=== PATIENT | male | born 1980 | race Two or more races ===

== ENCOUNTER 2018-10-27 23:57 | Inpatient (IN) | payer SELFPAY ==
[~2018-10-27] VITALS: Ht 177.8 cm; Wt 69.0 kg
[2018-10-28] MEDS ORDERED: ZIPRASIDONE IM 20 MG VIAL. IM ONE ×2 (00:30→02:00)
[2018-10-28 00:49] LABS: BASO % 1 % (0-3); EOS # 0.1 x10^3/uL (0.0-0.7); EOS % 1 % (0-3); HEMATOCRIT 46.3 % (39.0-53.0); HEMOGLOBIN 15.5 g/dL (13.0-17.5); LYMPH # 2.2 x10^3/uL (1.0-4.8); LYMPH % 32 % (24-48); MEAN CORPUSCULAR HEMOGLOBIN 32 pg (25-35); MEAN CORPUSCULAR HGB CONC 34 g/dL (31-37); MEAN CORPUSCULAR VOLUME 94 fL (79-100); MONO # 0.6 x10^3/uL (0.0-1.1); MONO % 9 % (0-9); NEUT % 57 % (31-73); PLATELET COUNT 325 x10^3/uL (140-400); RED BLOOD COUNT 4.92 x10^6/uL (4.30-5.70); RED CELL DISTRIBUTION WIDTH 14.1 % (11.5-14.5)
[2018-10-28] MEDS ORDERED: NALOXONE 2 MG/2 ML DISP.SYRIN. IV ONE (00:58)
[2018-10-28] MEDS ORDERED: NALOXONE 0.4 MG/ML VIAL. IV ONE (01:00)
[2018-10-28 01:04] LABS: ALBUMIN/GLOBULIN RATIO 0.9 (1.0-1.7); CALCIUM 9.3 mg/dL (8.5-10.1); CREATININE 1.3 mg/dL (0.7-1.3); GFR 62.5; POTASSIUM 3.8 mmol/L (3.5-5.1); TOTAL BILIRUBIN 0.4 mg/dL (0.2-1.0); TOTAL PROTEIN 8.6 g/dL (6.4-8.2)
[2018-10-28 01:05] LABS: ACETAMIN < 2.0 mcg/mL (10-30); ETHANOL < 10 mg/dL (0-10); SALIC 3.6 mg/dL (2.8-20.0)
[2018-10-28 01:31] LABS: BARBITURATES NEG (NEG); BENZODIAZEPINES POS (NEG); CANNABINOIDS POS (NEG); COCAINE NEG (NEG); METHADONE NEG (NEG); OPIATES NEG (NEG); PHENCYCLIDINE NEG (NEG)
[2018-10-28 01:37] LABS: AMPHETAMINE/METHAMPHETAMINE POS (NEG)
[2018-10-28 01:40] LABS: BACTERIA,URINE 0 /HPF (0-FEW); BILIRUBIN,URINE NEG (NEG); CLARITY,URINE CLEAR; COLOR,URINE YELLOW; GLUCOSE,URINE NEG (NEG); NITRITE,URINE NEG (NEG); RBC,URINE 0 /HPF (0-2); SQUAMOUS EPITHELIAL CELL,UR FEW /LPF; UROBILINOGEN,URINE 1 mg/dL (0.2 mg/dL)
--- NOTE | 2018-10-28 01:59 | PHYS DOC ---
Past History Past Medical History: Hepatitis, Other Past Surgical History: Other Alcohol Use: Heavy Drug Use: Marijuana, Other Adult General Chief Complaint Chief Complaint: ALTERED MENTAL STATUS HPI HPI Patient is a 38-year-old male who presents via EMS with report of mental status change. Patient reportedly had been picked up by police officers this evening due to having arrest warrant in place. Patient had been taken into [facility] and then had told police officers that he had eaten an 8 ball of some kind of a drug but he is not sure what it was. Patient had admitted to them that he had done that to keep himself from getting into trouble. EMS reports that patient was very confused and combative while in route. Additional history is limited due to patient's mental status. Review of Systems Review of Systems Constitutional: No reported fever or chills [] Respiratory: No reported shortness of breath [] Cardiovascular: No additional information not addressed in HPI [] GI: No reported vomiting or diarrhea [] Unable to fully assess review of systems due to patient's mental status. Current Medications Current Medications Current Medications Medications (Trade) Dose Ordered Sig/Edgard Start Time Stop Time Status Last Admin Dose Admin Naloxone HCl (Narcan) 1 mg 1X ONCE 10/28/18 01:00 10/28/18 01:01 DC 10/28/18 01:04 1 MG Ziprasidone (Geodon Im) 20 mg 1X ONCE 10/28/18 00:30 10/28/18 01:01 DC 10/28/18 00:30 20 MG Allergies Allergies Allergies Coded Allergies Type Severity Reaction Last Updated Verified Unable to Assess 10/28/18 No Physical Exam Physical Exam Constitutional: Patient very confused, combative upon arrival. [] HENT: Normocephalic, atraumatic, bilateral external ears normal, oropharynx moist, no oral exudates, nose normal. [] Eyes: Pupils pinpoint, conjunctiva normal, no discharge. [] Neck: Normal range of motion, no tenderness, supple, no stridor. [] Cardiovascular: Mildly tachycardic rate with regular rhythm[] Lungs & Thorax: Bilateral breath sounds clear to auscultation [] Abdomen: Bowel sounds normal, soft, no tenderness. [] Skin: Warm, dry, no erythema, no rash. [] Extremities: No tenderness, no cyanosis, no clubbing, ROM intact, no edema. [] Neurologic: Confused, moves all 4 extremities, no focal deficits noted. [] Current Patient Data Vital Signs Vital Signs Date Time Temp Pulse Resp B/P (MAP) Pulse Ox O2 Delivery O2 Flow Rate FiO2 10/28/18 01:01 74 20 89/57 (68) 99 Room Air 10/28/18 00:35 98.0 Lab Results Laboratory Tests Test 10/28/18 00:30 10/28/18 01:15 White Blood Count 7.0 x10^3/uL (4.0-11.0) Red Blood Count 4.92 x10^6/uL (4.30-5.70) Hemoglobin 15.5 g/dL (13.0-17.5) Hematocrit 46.3 % (39.0-53.0) Mean Corpuscular Volume 94 fL (79-100) Mean Corpuscular Hemoglobin 32 pg (25-35) Mean Corpuscular Hemoglobin Concent 34 g/dL (31-37) Red Cell Distribution Width 14.1 % (11.5-14.5) Platelet Count 325 x10^3/uL (140-400) Neutrophils (%) (Auto) 57 % (31-73) Lymphocytes (%) (Auto) 32 % (24-48) Monocytes (%) (Auto) 9 % (0-9) Eosinophils (%) (Auto) 1 % (0-3) Basophils (%) (Auto) 1 % (0-3) Neutrophils # (Auto) 4.0 x10^3uL (1.8-7.7) Lymphocytes # (Auto) 2.2 x10^3/uL (1.0-4.8) Monocytes # (Auto) 0.6 x10^3/uL (0.0-1.1) Eosinophils # (Auto) 0.1 x10^3/uL (0.0-0.7) Basophils # (Auto) 0.0 x10^3/uL (0.0-0.2) Sodium Level 137 mmol/L (136-145) Potassium Level 3.8 mmol/L (3.5-5.1) Chloride Level 101 mmol/L (98-107) Carbon Dioxide Level 19 mmol/L (21-32) L Anion Gap 17 (6-14) H Blood Urea Nitrogen 8 mg/dL (8-26) Creatinine 1.3 mg/dL (0.7-1.3) Estimated GFR (Cockcroft-Gault) 62.5 BUN/Creatinine Ratio 6 (6-20) Glucose Level 92 mg/dL (70-99) Calcium Level 9.3 mg/dL (8.5-10.1) Magnesium Level 2.0 mg/dL (1.8-2.4) Total Bilirubin 0.4 mg/dL (0.2-1.0) Aspartate Amino Transferase (AST) 15 U/L (15-37) Alanine Aminotransferase (ALT) 20 U/L (16-63) Alkaline Phosphatase 116 U/L (46-116) Ammonia 28 mcmol/L (11-34) Total Protein 8.6 g/dL (6.4-8.2) H Albumin 4.0 g/dL (3.4-5.0) Albumin/Globulin Ratio 0.9 (1.0-1.7) L Salicylates Level 3.6 mg/dL (2.8-20.0) Salicylate Last Dose Date Unknown Salicylate Last Dose Time Unknown Acetaminophen Level < 2.0 mcg/mL (10-30) L Acetaminophen Last Dose Date Unknown Acetaminophen Last Dose Time Unknown Ethyl Alcohol Level < 10 mg/dL (0-10) Urine Collection Type U cath Urine Color Yellow Urine Clarity Clear Urine pH 7.0 Urine Specific [place] 1.020 Urine Protein Neg (NEG-TRACE) Urine Glucose (UA) Neg mg/dL (NEG) Urine Ketones (Stick) Neg mg/dL (NEG) Urine Blood Neg (NEG) Urine Nitrite Neg (NEG) Urine Bilirubin Neg (NEG) Urine Urobilinogen Dipstick 1 mg/dL (0.2 mg/dL) Urine Leukocyte Esterase Trace (NEG) Urine RBC 0 /HPF (0-2) Urine WBC 1-4 /HPF (0-4) Urine Squamous Epithelial Cells Few /LPF Urine Bacteria 0 /HPF (0-FEW) Urine Opiates Screen Neg (NEG) Urine Methadone Screen Neg (NEG) Urine Barbiturates Neg (NEG) Urine Phencyclidine Screen Neg (NEG) Urine Amphetamine/Methamphetamine Pos (NEG) Urine Benzodiazepines Screen Pos (NEG) Urine Cocaine Screen Neg (NEG) Urine Cannabinoids Screen Pos (NEG) Urine Ethyl Alcohol Neg (NEG) EKG EKG [] Radiology/Procedures Radiology/Procedures [] Course & Med Decision Making Course & Med Decision Making Pertinent Labs and Imaging studies reviewed. (See chart for details) [] Dragon Disclaimer Dragon Disclaimer This electronic medical record was generated, in whole or in part, using a voice recognition dictation system. Departure Departure: Impression: Primary Impression: Methamphetamine abuse Additional Impression: Overdose by amphetamine Disposition: 09 ADMITTED INPATIENT Admitting Physician: Ursula Larsen Condition: GOOD Referrals: PCP,NO (PCP) Scripts No Active Prescriptions or Reported Meds Problem Qualifiers Additional Impression: Overdose by amphetamine Encounter type: initial encounter Injury intent: undetermined intent Qualified Codes: T43.624A - Poisoning by amphetamines, undetermined, initial encounter WILIAN WILSON Jr. DO Oct 28, 2018 01:59
[2018-10-28] MEDS ORDERED: IV NORMAL SALINE 1,000ML 1,000 ML IV ONE ×2 (02:00→03:00)
[2018-10-28] MEDS ORDERED: IOHEXOL 300 MG/ML 75 ML VIAL. IV ONE (06:30)
[2018-10-28] MEDS ORDERED: CONTRAST GIVEN MC PRN (06:30)
--- NOTE | 2018-10-28 06:59 | RAD ---
EXAM: CT Abdomen and Pelvis with IV contrast CLINICAL HISTORY: ABDOMINAL PAIN. PATIENT INGESTED UNKNOWN SUBSTANCE, COMBATIVE COMPARISON: none TECHNIQUE: Helical CT of the abdomen and pelvis was performed following the administration of intravenous contrast. Axial, coronal and sagittal reformatted images were generated. PQRS compliance statement - One or more of the following individualized dose reduction techniques were utilized for this study: 1. Automated exposure control 2. Adjustment of the mA and/or kV according to patient size 3. Use of iterative reconstruction technique FINDINGS: Lower chest: Lung bases are clear. Abdomen and Pelvis: No focal liver lesion. Gallbladder is normal. No biliary ductal dilatation. Spleen is unremarkable. Adrenal glands are normal. Pancreas is unremarkable. Symmetric nephrograms. No focal renal lesion. No hydronephrosis. There is marked distention of the bladder, this can be correlated for possible voluntary or involuntary causes of urinary retention. Moderate colonic stool content is seen. The appendix is grossly unremarkable. No evidence for bowel obstruction. No abdominal or pelvic ascites. No abdominal or pelvic lymphadenopathy. Small fat-containing periumbilical hernia is seen. Bones: Osseous structures are grossly unremarkable. IMPRESSION: 1. Marked distention of the bladder, this can be correlated for possible voluntary or involuntary causes of urinary retention. 2. Moderate colonic stool content is seen. The appendix is grossly unremarkable. 3. Small fat-containing periumbilical hernia is seen. Electronically signed by: Maldonado Hilario MD (10/28/2018 6:56 AM) [facility]
[2018-10-28 08:52] VITALS: BP 113/71
[2018-10-28 11:35] VITALS: BP 98/74
[2018-10-28 12:37] VITALS: BP 99/63
[2018-10-28] MEDS ORDERED: KETOROLAC 30 MG/ML VIAL. IV PRN (13:30)
[2018-10-28 13:36] VITALS: BP 103/74
[2018-10-28 15:00] VITALS: BP 99/64
[2018-10-28 15:26] LABS: ALBUMIN 3.1 g/dL (3.4-5.0); ALBUMIN/GLOBULIN RATIO 0.8 (1.0-1.7); CALCIUM 8.7 mg/dL (8.5-10.1); GFR 84.5; POTASSIUM 4.1 mmol/L (3.5-5.1); TOTAL BILIRUBIN 0.4 mg/dL (0.2-1.0); TOTAL PROTEIN 6.8 g/dL (6.4-8.2)
--- NOTE | 2018-10-28 17:30 | SSS ---
ADMIT DATE: 10/28/2018 HISTORY OF PRESENT ILLNESS: The patient is a 38-year-old male patient who was brought to the Emergency Room with altered mental status. He was initially unresponsive; however, it transpired that he ate took large dose of amphetamine given to him by according to him. I have tried to understand why he took it and he was evasive and started complaining of having pain in his liver and burning sensation in his lungs because he has systemic lupus. PAST MEDICAL HISTORY: According to him, he has had hepatitis C and also lupus erythematosus. PAST SURGICAL HISTORY: Unremarkable. He apparently drinks alcohol heavily and uses marijuana, amphetamine. In fact, his toxic screen at this time was positive for amphetamine, methamphetamine, benzodiazepine as well as cannabinoids. ALLERGIES: He has no known drug allergies. MEDICATIONS: He is currently on no medication. PHYSICAL EXAMINATION: GENERAL: On arrival to the Emergency Room, from the discussion with the ER physician, he was lethargic, but arousable. There was no jaundice or cyanosis. No lymphadenopathy, no thyromegaly. No jugular venous distension. No lower limb edema. VITAL SIGNS: His heart rate was 58, blood pressure was 123/53, temperature was 97.7, respiratory rate was 20, and oxygen saturation was 100% on room air. HEAD, EYES, EARS, NOSE, AND THROAT: Showed normocephalic, atraumatic. NECK: Supple. HEART: Showed normal first and second heart sounds. No gallop, rub or murmur. CHEST: Clear to auscultation. No crepitation or rhonchi. ABDOMEN: Distended, soft, nontender. NEUROLOGIC: He is awake, alert, responding appropriately. All cranial nerves are intact. EXTREMITIES: He moves extremities without difficulty. He was very aggressive when I told him that all his lab works are normal and was cursing and using disrespectful words. LABORATORY DATA: His lab work on arrival showed a serum sodium 137, potassium 3.8, chloride 101, bicarbonate 19, and anion gap of 17, BUN of 8, creatinine 1.3, estimated GFR was 62 mL per minute. His glucose was 92, calcium was 9.3, magnesium was 2. Total bilirubin, AST, ALT, alkaline phosphatase were normal. His ammonia was only 28 and total protein was 8.6, albumin was 4. His urinalysis showed the urine was yellow, clear with a pH of 7, specific gravity of 1.020. The urine was negative for protein, glucose, ketones, blood, nitrite, bilirubin, and alkaline leukocyte esterase. There was trace of leukocyte esterase and wbc's, and no bacteria. His toxic screen showed that the salicylic acid was only 3.6 mg/dL and acetaminophen was only less than 2 mcg/mL. The toxic screen was negative for opiates, methadone, barbiturates, phencyclidine; however, it was positive for amphetamine, methamphetamine, benzodiazepine and cannabinoids. The patient was observed in the ICU. By the time I saw him in the afternoon, he was definitely awake, alert. I did repeat his lab work and showed that his lab work even has normalized completely. His serum sodium was 139, potassium 4.1, chloride 106, bicarbonate 27, anion gap of 6, BUN 9, creatinine 1, estimated GFR was 84 mL per minute, his glucose was 98, calcium was 8.7. Total bilirubin, AST, ALT, alkaline phosphatase were normal. Total protein was 6.8, albumin was 3.1. As he is hemodynamically stable, afebrile, all his lab works are fine. The patient was [facility]. FINAL DISCHARGE DIAGNOSES: Polysubstance abuse including amphetamine, methamphetamine, benzodiazepine and cannabinoids. The patient claimed that he has hepatitis C; however, his liver enzymes are completely normal. We checked even ammonia level, it was normal. He stated that his systemic lupus erythematosus, I do not have anything to confirm that; even then that is not a reason for him to stay in the hospital. DAKOTA NOLAN MD DR: BRENT/yoana JOB#: [id number] / [id number]
--- NOTE | 2018-10-28 18:16 | EKG ---
[address] [address] Test Date: 2018-10-28 Test Time: 01:26:03 Pat Name: MARIE ROBERTS Department: Room: [facility] 1 Gender: M Supervisor Polishing: HARITHA : 1980 Requested By: WILIAN WILSON Order Number: [id number] Reading MD: Juan Cisneros MD Measurements Intervals [place] Rate: 66 P: 42 AL: 126 QRS: 64 QRSD: 98 T: 62 QT: 430 QTc: 453 Interpretive Statements SINUS RHYTHM ATRIAL PREMATURE COMPLEX(ES) Electronically Signed On 10-29-2018 9:57:51 CDT by Juan Cisneros MD
== END 2018-10-28 16:40 | DRG 918 ==
LOC: ER 23:57 → EEVIPCON 23:57 → ICU 10-28 01:55
PROVIDERS: ADMIT Internal Medicine; ATTEND Internal Medicine
DX: T43.621A Poisoning by amphetamines, accidental (unintentional), initial encounter (principal); F15.10 Other stimulant abuse, uncomplicated; F12.90 Cannabis use, unspecified, uncomplicated; B19.20 Unspecified viral hepatitis C without hepatic coma; M32.9 Systemic lupus erythematosus, unspecified; Y92.89 Other specified places as the place of occurrence of the external cause
CPT/HCPCS: 36415; 74177; 80053; 80307; 80329; 81001; 82140; 83735; 85025; 87086; 93005; 96361; 96372; 96374; G0480; J1885; J2310; J3486; Q9967; 82003; 99285-25; J7030